=== PATIENT | male | born 1945 | race Caucasian/White ===

== ENCOUNTER → 2022-05-27 | Outpatient (CLI) | payer MEDICARE ==
[2022-05-27 17:23] LABS: Basophils # (A) 0.1 k/uL (0-0.2); Basophils % (A) 1 %; Eosinophils # (A) 0.1 k/uL (0-0.7); Eosinophils % (A) 2 %; HCT 48.9 % (39.0-53.0); HGB 16.8 gm/dL (13.0-17.5); Lymphocytes # (A) 1.2 k/uL (1.0-4.8); Lymphocytes % (A) 22 %; MCH 33.1 pg (25.0-35.0); MCHC 34.4 g/dL (31.0-37.0); MCV 96.1 fL (80.0-100.0); Mean Platelet Volume 9.1; Monocytes # (A) 0.4 k/uL (0-1.0); Monocytes % (A) 7 %; Neutrophils # (A) 3.5 k/uL (1.3-7.7); Neutrophils % (A) 65 %; Platelet Count 138 k/uL (150-450); RBC 5.08 m/uL (4.30-5.90); RDW 13.1 % (11.5-15.5); WBC 5.3 k/uL (3.8-10.6)
== END | disposition home or self-care (01) ==
LOC: LABWHC1 15:56
PROVIDERS: ATTEND Internal Medicine
DX: D69.6 Thrombocytopenia, unspecified (principal)
CPT/HCPCS: 36415; 85025

== ENCOUNTER → 2023-05-26 | Outpatient (CLI) | payer MEDICARE ==
[2023-05-26 13:14] LABS: Creatinine,Urine Random 90.9 mg/dL; Protein/Creatinine Ratio,Urine 0.066
[2023-05-26 15:03] LABS: Basophils # (A) 0.04 X 10*3/uL (0.00-0.10); Basophils % (A) 0.6 %; Eosinophils # (A) 0.14 X 10*3/uL (0.04-0.35); Eosinophils % (A) 2.2 %; HCT 48.9 % (39.6-50.0); HGB 17.2 d/dL (13.0-17.0); Lymphocytes # (A) 0.96 X 10*3/uL (0.90-5.00); Lymphocytes % (A) 15.3 %; MCH 32.4 pg (27.0-32.0); MCHC 35.2 d/dL (32.0-37.0); MCV 92.1 FL (80.0-97.0); Mean Platelet Volume 11.2 FL (9.5-12.2); Monocytes # (A) 0.49 X 10*3/uL (0.20-1.00); Monocytes % (A) 7.8 %; NRBC Per 100 WBC 0 X 10*3/uL (0.00-0.01); Neutrophils % (A) 73.6 %; Platelet Count 131 X 10*3/uL (140-440); RBC 5.31 X 10*6/uL (4.40-5.60); RDW 12.7 % (11.5-14.5); WBC 6.26 X 10*3/uL (4.50-10.00)
[2023-05-26 16:38] LABS: % Iron Saturation 30.65 (15.00-50.00); ALT 21 U/L (10-49); AST 22 U/L (14-35); Albumin 4.9 d/dL (3.8-4.9); Albumin/Globulin Ratio 2.04 Ratio (1.60-3.17); Alkaline Phosphatase 49 U/L (41-126); BUN/Creat Ratio 14.38 Ratio (12.00-20.00); Blood Urea Nitrogen 18.7 mg/dL (9.0-27.0); Calcium 9.8 mg/dL (8.7-10.3); Carbon Dioxide 25.5 mmol/L (21.6-31.8); Chloride 104 mmol/L (96-109); Globulin 2.4 d/dL (1.6-3.3); Glucose 90 mg/dL (70-110); Iron 103 UG/DL (65-175); LDL Cholesterol,Calculated 81.2 mg/dL (0.0-131.0); Magnesium 2.2 mg/dL (1.5-2.4); Phosphorus 2.6 mg/dL (2.4-5.1); Potassium 4.5 mmol/L (3.5-5.5); Sodium 139 mmol/L (135-145); T4, Free (Free Thyroxine) 1.19 ng/dL (0.80-1.80); Total Bilirubin 0.8 mg/dL (0.3-1.2); Total Iron Binding Capacity 336 UG/DL (228-460); Total Protein 7.3 d/dL (6.2-8.2)
[2023-05-26 20:04] LABS: Appearance,Urine Clear (Clear); Bilirubin,Urine Negative (Negative); Blood,Urine Negative (Negative); Color,Urine Yellow (Yellow); Ketones,Urine Negative (Negative); Nitrite,Urine Negative (Negative); PH, Urine 5.5; Specific Gravity,Urine 1.013 (1.001-1.030); Urobilinogen,Urine 0.2 E.U./DL
[2023-05-27 11:42] LABS: Free Kappa Lt Chain Qnt, Serum 2.61 mg/dL (0.33-1.94); Free Lambda Lt Chain Qnt, Seru 1.87 mg/dL (0.57-2.63)
== END | disposition home or self-care (01) ==
LOC: LABWHC1 09:59
PROVIDERS: ATTEND Internal Medicine
DX: I12.9 Hypertensive chronic kidney disease with stage 1 through stage 4 chronic kidney disease, or unspecified chronic kidney disease (principal); E78.2 Mixed hyperlipidemia; N18.2 Chronic kidney disease, stage 2 (mild); N40.0 Benign prostatic hyperplasia without lower urinary tract symptoms
CPT/HCPCS: 36415; 80053; 80061; 81003; 82306; 82570; 83036; 83540; 83550; 83735; 83883; 83970; 84100; 84153; 84156; 84439; 84443; 85025

== ENCOUNTER → 2024-03-07 | Outpatient (CLI) | payer MEDICARE ==
--- NOTE | 2024-03-08 10:24 | CA ---
Transthoracic Echo Report Name: Rodríguez Chin Age: 79 Gender: M : 1945 Exam Date: 03/07/2024 14:44 Exam Location: [facility] Ht (in): 71 Wt (lb): 155 Ordering Physician: Daniel Cordon MD Attending/Referring Phys: Daniel Cordon MD [employer] Chief Marketing Officer Leyla Julian RDCS Procedure CPT: Indications: I25.10 CORONARY ARTERIOSCIEROSIS Cardiac Hx: Technical Quality: Good Contrast 1: Total Dose (mL): Contrast 2: Total Dose (mL): MEASUREMENTS (Male / Female) Normal Values 2D ECHO LV Diastolic Diameter PLAX 4.9 cm 4.2 - 5.9 / 3.9 - 5.3 cm LV Systolic Diameter PLAX 3.2 cm IVS Diastolic Thickness 1.1 cm 0.6 - 1.0 / 0.6 - 0.9 cm LVPW Diastolic Thickness 1.2 cm 0.6 - 1.0 / 0.6 - 0.9 cm LV Relative Wall Thickness 0.5 RV Internal Dim ED PLAX 3.3 cm LA Systolic Diameter LX 3.7 cm 3.0 - 4.0 / 2.7 - 3.8 cm LV Diastolic Volume MOD 4C 120.2 cm??? LV Systolic Volume MOD 4C 59.4 cm??? LV Ejection Fraction MOD 4C 50.6 % LV Cardiac Index MOD 4C 2078.6 cm???/min???m??? LV Diastolic Length 4C 8.5 cm LV Systolic Length 4C 6.5 cm LV Diastolic Volume MOD 2C 69.5 cm??? LV Systolic Volume MOD 2C 37.5 cm??? LV Ejection Fraction MOD 2C 46.0 % LV Cardiac Index MOD 2C 1090.7 cm???/min???m??? LV Diastolic Length 2C 7.6 cm LV Systolic Length 2C 6.4 cm LA Volume 61.3 cm??? 18 - 58 / 22 - 52 cm??? LA Volume Index 32.7 cm???/m??? 16 - 28 cm???/m??? M-MODE Aortic Root Diameter MM 3.4 cm MV E Point Septal Separation 0.7 cm AV Cusp Separation MM 2.2 cm DOPPLER AV Peak Velocity 123.5 cm/s AV Peak Gradient 6.1 mmHg AI Peak Velocity 430.6 cm/s AI Peak Gradient 74.2 mmHg AI Pressure Half Time 872.2 ms MV Area PHT 2.1 cm??? Mitral E Point Velocity 50.2 cm/s Mitral A Point Velocity 89.6 cm/s Mitral E to A Ratio 0.6 MV Deceleration Time 369.8 ms TR Peak Velocity 230.4 cm/s TR Peak Gradient 21.2 mmHg Right Ventricular Systolic Press 26.2 mmHg FINDINGS Left Ventricle Left ventricular ejection fraction is estimated at 55-60 %. Left ventricular cavity size normal. Left ventricular wall thickness normal. Normal left ventricular wall motion. No obvious regional wall motion abnormalities. Grade I Diastolic dysfunction. Right Ventricle Normal right ventricular size and function. . Right ventricular systolic pressure within normal limits. Right Atrium Normal right atrial size. No right atrial thrombus or mass seen. Left Atrium Mildly increased left atrial volume. Mitral Valve Structurally normal mitral valve. No mitral stenosis, regurgitation or prolapse. Aortic Valve Trileaflet aortic valve. Mild aortic regurgitation. Tricuspid Valve Structurally normal tricuspid valve. Mild tricuspid regurgitation. Pulmonic Valve Structurally normal pulmonic valve. Trace pulmonic regurgitation. Pericardium No pericardial effusion. No pleural effusion. Aorta Normal size aortic root and proximal ascending aorta. CONCLUSIONS Left ventricular ejection fraction is estimated at 55-60 %. No obvious regional wall motion abnormalities. Grade I Diastolic dysfunction. Mild aortic regurgitation Normal right ventricular size and function. Previewed by: Dr Robert Bellamy (Electronically Signed) Final Date: 08 Mar 2024 10:23
== END | disposition home or self-care (01) ==
LOC: RADECHMAIN 14:23
PROVIDERS: ATTEND Internal Medicine
DX: I35.1 Nonrheumatic aortic (valve) insufficiency (principal); I51.89 Other ill-defined heart diseases; I25.10 Atherosclerotic heart disease of native coronary artery without angina pectoris
CPT/HCPCS: 93306

== ENCOUNTER → 2025-04-03 | Outpatient (CLI) | payer MEDICARE ==
--- NOTE | 2025-04-03 17:08 | CT ---
EXAMINATION TYPE: CT abdomen pelvis wo con DATE OF EXAM: 04/03/2025 4:38 PM COMPARISON: None available. CLINICAL INDICATION: Male, 80 years old with history of N13.30 UNSPECIFIED HYDRONEPHROSIS; renal ston e protocol TECHNIQUE: Axial CT abdomen pelvis wo con;Sagittal and coronal reformats were created on a separate workstation. Oral contrast used: without Oral Contrast (none if empty) CT DLP: 381.7 mGycm, Automated exposure control for dose reduction was used. FINDINGS: LOWER CHEST: Unremarkable ABDOMEN LIVER: Unremarkable GALLBLADDER AND BILE DUCTS: Unremarkable. PANCREAS: Unremarkable. SPLEEN: Unremarkable. ADRENAL GLANDS: Unremarkable. KIDNEYS AND URETERS: Crossed fused renal ectopia. No evidence of nephrolithiasis or urolithiasis. No significant hydronephrosis. PELVIS BLADDER: Circumferential urinary bladder wall thickening. REPRODUCTIVE: Central prostate gland calcifications. ABDOMEN & PELVIS STOMACH AND BOWEL: Stomach and duodenum are unremarkable. Scattered diverticula are noted throughout the colon. No evidence of bowel obstruction. PERITONEUM/RETROPERITONEUM: No evidence of pneumoperitoneum or free fluid. VASCULATURE: No evidence of aortic aneurysm. MUSCULOSKELETAL: No acute osseous abnormalities. 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 Multilevel severe intervertebral disc space loss. Multiple anterior osteophyte format ion. Osseous structures appear demineralized. LYMPH NODES: No gross evidence for lymphadenopathy. SOFT TISSUE/ABDOMINAL WALL: Left inguinal hernia fat and a portion of a nonobstructed small bowel loo p (118/155). IMPRESSION: 1. Circumferential urinary bladder wall thickening with mild surrounding inflammation. Recommend cor relation with urinalysis for cystitis. 2. 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 3. Colonic diverticulosis without acute diverticulitis. 4. Left inguinal hernia containing fat and portion of a nonobstructed small bowel loop. [facility], , 04/03/2025 5:06 PM
== END | disposition home or self-care (01) ==
LOC: RADCTMAIN 15:41
PROVIDERS: ATTEND Urology
DX: K57.30 Diverticulosis of large intestine without perforation or abscess without bleeding (principal); K40.90 Unilateral inguinal hernia, without obstruction or gangrene, not specified as recurrent; N13.30 Unspecified hydronephrosis; N30.90 Cystitis, unspecified without hematuria; Q63.2 Ectopic kidney
CPT/HCPCS: 74176